=== PATIENT | female | born 1940 | race Caucasian/White ===

== ENCOUNTER 2024-11-24 10:20 | Outpatient (CLI) | payer MEDICARE ==
[~2024-11-24 10:20] MED LIST: IODIXANOL 320 MG/ML INFUS..BTL 100ML IV ONE
[2024-11-24 11:03] LABS: MEAN PLATELET VOLUME 7.0 FL (7.4-10.4); RED CELL DISTRIBUTION WIDTH 19.6 % (11.5-14.5)
[2024-11-24 11:14] LABS: INR 1.0 INR
[2024-11-24 11:23] LABS: PLATELET ESTIMATE NORMAL
[2024-11-24 11:24] LABS: ELLIPTOCYTES 1+; LARGE PLATELETS FEW
[2024-11-24 11:26] LABS: CREATININE 1.48 MG/DL (0.40-0.90); PRO BRAIN NATRIURETIC PEPTIDE 3297 PG/ML (0-450); TOTAL CARBON DIOXIDE 23.3 MMOL/L (24-32); eGFR 34 ML/MIN
[2024-11-24 11:34] LABS: APTT 24 SECONDS (22-32)
--- NOTE | 2024-11-24 11:38 | RADIOLOGY REPORT ---
DI CHEST,TWO VIEWS, HISTORY: SOB TAVR COMPARISON: None None TECHNICAL DATA: 2 view of the chest was obtained. FINDINGS: Lines and tubes: None Cardiomediastinal silhouette: normal Pulmonary vasculature: normal Lung expansion: normal Lung airspace: normal Lung interstitium: normal Pleura: normal Pneumothorax: no Bones: Unremarkable Other: no IMPRESSION: No acute intrathoracic abnormality.
--- NOTE | 2024-11-24 12:37 | VASCULAR REPORT ---
CLINICAL HISTORY: Preoperative examination. TECHNIQUE: Duplex carotid Doppler ultrasound was performed. Grayscale, color-flow, and spectral wavef orm analysis was performed. COMPARISON: None FINDINGS: There is moderate calcified plaque in the right carotid bifurcation moderate to marked calcified plaq ue in the left carotid bifurcation. There is elevated peak systolic velocity in the proximal left int ernal carotid artery up to 307 cm/sec with ICA/CCA ratio of 3.8. No significant elevation of peak sys tolic velocity in the right internal carotid artery. There is elevated peak systolic velocities in wero th external carotid arteries. Subclavian arteries are patent bilaterally, with peak systolic velocity in the right subclavian artery measuring up to 119 cm/sec peak systolic velocity in the left subclav estella artery measuring up to 115 cm/sec. EXAMINATION DATA: RIGHT PSV (cm/s) EDV (cm/s) ICA 121 29 CCA 76 ECA 213 ICA/CCA Ratio: 1.6 Vertebral Flow: antegrade LEFT PSV (cm/s) EDV (cm/s) ICA 307 195 CCA 123 ECA 276 ICA/CCA Ratio: 3.8 Vertebral Flow: antegrade IMPRESSION: 1. Calcified atherosclerotic plaque of the carotid bifurcations bilaterally. The left proximal international relations professor al carotid artery peak systolic velocity is consistent with greater than 70% stenosis, although the I CA/CCA ratio is less than 4. 2. Findings in the right internal carotid artery correspond to the less than 50% stenosis category. 3. Elevated peak systolic velocities in both external carotid arteries, consistent with the less than 50% stenosis category, although the proximal right external carotid artery visually approaches 50% s tenosis. 4. Antegrade flow in the vertebral arteries bilaterally.
--- NOTE | 2024-11-25 11:26 | RADIOLOGY REPORT ---
Procedure: CT CTA TAVR Reason for study/Clinical History: Chest pain, evaluate for dissection. Comparison Study: None Exam Date: 11/24/2024 12:27 PM TECHNIQUE: Multiplanar reformatted images were generated from volumetric data acquired on a multidetector CT [facility]. Cardiac gating was utilized. Arterial phase images were obtained through the chest, abdomen and pelvis following intravenous administration of contrast material. 100 mL visipaque [address] dose reduction techniques were utilized. 3-D reconstructions were performed on an independent work station. Radiation Dose Information: CT Dose: CTDI volume is 65 mGy. Dose-length product is 1928 mGy*cm FINDINGS: Vascular: Aortic measurements: Aortic annulus: 25.6 x 23 mm Sinus of valsalva: right cusp 31.7 mm, left cusp 32.5 mm, non-coronary cusp 32.3 mm Right coronary distance: 27.2 Left coronary distance: 19.2 ST junction 25.5 mm Ascending aorta 32.5 mm Aortic arch 27.3 mm Descending aorta 27.5 mm Aortic hiatus 25 mm Upper abdominal aorta 23.4 mm Minimal abdominal aorta 6.73 mm Right common iliac 3.77 mm, tortuosity index 1.08 Left common iliac 3.33 mm, tortuosity index 1.18 There is normal caliber of aorta. No aortic dissection. Penetrating atherosclerotic ulcer projecting off the distal descending thoracic aorta at the level of the hiatus measuring up to 26 mm with mild m ural thrombus. Bovine aortic arch. There is conventional coronary artery anatomy. Diffuse calcified atherosclerotic plaque. No central pulmonary embolism. There is normal dimension of the main pulmonary artery. Heart is normal. There are no intracardiac filling defects. No pericardial effusion. Mediastinum: There is no significant intrathoracic or axillary lymphadenopathy by CT size criteria. Lungs: Atelectasis and scarring in the lung bases. Pleura: No effusion or pneumothorax. Chest wall: No acute abnormality. Abdomen and Pelvis: Liver: Left hepatic cysts. Gallbladder: Cholelithiasis. Spleen: Normal in appearance. Pancreas: Normal in appearance. Adrenals: Normal in appearance. Kidneys: Bilateral renal cysts including parapelvic renal cysts. No hydronephrosis. Bowel: Normal in appearance. Peritoneum: No free air or free fluid. Lymph nodes: Subcentimeter retroperitoneal and iliac chain lymph nodes noted. Pelvic structures: No pelvic mass. Bones: Chronic appearing compression deformity of L1. Multilevel degenerative disease. Grade 1 anter olisthesis of L4 on L5. Osteopenia. IMPRESSION: 1. TAVR planning with vascular measurements as described above. 2. Penetrating atherosclerotic ulcer projecting off the distal descending thoracic aorta measuring up to 25 mm with mild mural thrombus. Vascular surgery and/or interventional radiology evaluation is re commended. 3. Left hepatic cysts. Cholelithiasis. Bilateral renal cysts including parapelvic renal cysts. Subc entimeter retroperitoneal and iliac chain lymph nodes are nonspecific. Chronic appearing compression deformity of L1. Osteopenia. HS:Y
== END 2024-11-24 23:59 | disposition home or self-care (01) ==
LOC: RAD 10:20
PROVIDERS: ATTEND Internal Medicine Cardiovascular Disease
DX: N28.1 Cyst of kidney, acquired (principal); K80.20 Calculus of gallbladder without cholecystitis without obstruction; K76.89 Other specified diseases of liver; I65.23 Occlusion and stenosis of bilateral carotid arteries; I21.9 Acute myocardial infarction, unspecified; I70.0 Atherosclerosis of aorta; I35.0 Nonrheumatic aortic (valve) stenosis; R06.02 Shortness of breath; M43.8X6 Other specified deforming dorsopathies, lumbar region; M25.78 Osteophyte, vertebrae
CPT/HCPCS: 36415; 71046; 71275; 74174; 75572; 80053; 83880; 85008; 85025; 85610; 85730; 93880; Q9967

== ENCOUNTER 2024-12-23 07:16 | Inpatient (IN) | payer MEDICARE ==
--- NOTE | 2024-12-16 13:51 | ELECTROCARDIOGRAPH REPORT ---
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 ALBA Polanco Measurements Intervals [place] Rate: 69 P: 76 [place]: 154 QRS: 72 QRSD: 94 T: 80 QT: 396 QTc: 425 Interpretive Statements Sinus rhythm Consider left atrial enlargement Electronically Signed On 12-17-2024 15:36:[address] ALBA Polanco Please click the below link to view image of tracing.
[2024-12-16 14:08] LABS: LEUKOCYTE ESTERASE ,URINE NEGATIVE (Neg); NITRITES, URINE NEGATIVE (Neg); OCCULT BLOOD,URINE NEGATIVE (Neg)
[2024-12-16 14:16] LABS: UA COLLECTION TYPE NON-SPECIFIED
[2024-12-16 14:17] LABS: MEAN PLATELET VOLUME 7.1 FL (7.4-10.4); PRE OP HEMATOCRIT 29.3 % (35.0-45.0); PRE OP PLATELET COUNT 170 X10'3 (140-440); PRE OP WHITE BLOOD COUNT 4.1 10'3 (4.8-10.8); RED CELL DISTRIBUTION WIDTH 19.8 % (11.5-14.5)
[2024-12-16 14:19] LABS: FINE GRANULAR CAST 0-3 /LPF (NEGATIVE); MUCUS STRANDS FEW /LPF (Neg); SQUAMOUS EPITHELIAL CELL,UR FEW /LPF (FEW)
[2024-12-16 14:23] LABS: COARSE GRANULAR CAST 0-3 /LPF (NEGATIVE); PRE OP INR 1.1 INR; PRE OP PARTIAL THROMB. TIME 25.0 SECONDS (22-32); PRE OP PROTIME 10.8 SECONDS (9.0-12.0)
[2024-12-16 14:27] LABS: PRE OP HEMOGLOBIN 9.5 g/dL (12.0-16.0)
[2024-12-16 14:31] LABS: CAL OXALATE CRYSTALS 3+ /HPF (NEGATIVE); CREATININE 1.26 MG/DL (0.40-0.90); PRE OP ALT 12 U/L (30-65); PRE OP ANION GAP 7 (8-16); PRE OP AST 15 U/L (10-37); PRE OP BILIRUB, TOTAL 0.5 MG/DL (0.0-1.0); PRE OP GLUCOSE 92 MG/DL (70-104); PRE OP POTASSIUM 3.8 MMOL/L (3.4-5.1); PRE OP SODIUM 138 MMOL/L (135-145); PRO BRAIN NATRIURETIC PEPTIDE 944 PG/ML (0-450); TOTAL CARBON DIOXIDE 25.2 MMOL/L (24-32); eGFR 41 ML/MIN
[2024-12-16 15:03] LABS: PLATELET ESTIMATE NORMAL
[2024-12-16 15:04] LABS: ELLIPTOCYTES 1+
[2024-12-23] VITALS (23 sets, daily range): BP systolic 112–161; BP diastolic 39–89; PULSE 57–88; RESP 11–20; TEMP 97.6–98.4; O2SAT 96–99
[~2024-12-23] VITALS: Ht 160 cm; Wt 57.8 kg
[2024-12-23] MEDS: ceFAZolin 2gm/dext,iso 50mL 50 ML IV ONE (05:30)
[2024-12-23] MEDS: phenylephrine inj 50 MG in normal saline 250ml IV solN IV SCH (06:35)
[2024-12-23] MEDS: nitroPRUSSIDE (NIPRIDE) (200MCG/ML) 100ML Drip IV SCH (06:35)
[~2024-12-23 07:16] MED LIST changes: +ASCO-482 PO; +ASPI81TA52 PO; +ATOR-2 PO; +CARV-50 PO; +CHOL100046 PO; +DOCUMENT DATE & TIME OF BETA-BLOCKER PO ONE; +ESOM20CA PO; +FOLI0.4T6 PO; +HYDR200T73 PO; -IODIXANOL 320 MG/ML INFUS..BTL 100ML IV ONE; +METH2.5T PO; +PRED5TAB PO; +ondansetron/PF 4mg/2ml inj IV PRN; +protamine sulfate 10mg/ml inj. ONE
[2024-12-23] MEDS: hydrocortisone sod succ/PF 100mg/2ml inj. IV ONE (07:49)
[2024-12-23] MEDS: ringers solution, lacted 1,000 ML IV SCH ×2 (07:50→12:05)
[2024-12-23] MEDS: VANCOMYCIN 1GM 200ML H20 (PEG) 200 ML IV ONE (07:50)
[2024-12-23] MEDS ORDERED: heparin 1,000 UNITS/NS 500ml 1,500 ML ONE (10:11)
[2024-12-23] MEDS ORDERED: LIDOcaine 1% 30ml preserv. free vial ONE (10:11)
[2024-12-23] MEDS ORDERED: ondansetron/PF 4mg/2ml inj IV PRN ×2 (10:25→11:50)
[2024-12-23] MEDS ORDERED: acetaminophen 1,000mg/100ml IV 100 ML IV PRN (10:25)
[2024-12-23] MEDS ORDERED: HYDROmorphone/PF 0.2 MG/ML SYRINGE IV PRN (10:25)
[2024-12-23] MEDS ORDERED: labetalol 20mg/4ml (5mg/ml) syringe IV PRN ×2 (10:25→11:50)
[2024-12-23] MEDS ORDERED: midazolam 1 mg/ML 2ml injection ONE (10:29)
[2024-12-23] MEDS ORDERED: fentaNYL/PF 50MCG/1 ML 2ML syringe ONE (10:29)
[2024-12-23] MEDS ORDERED: propofol inj 20 ML IV ONE ×2 (10:35)
[2024-12-23] MEDS ORDERED: potassium CL 10mEq/100ml bag 100 ML IV PRN (11:50)
[2024-12-23] MEDS ORDERED: potassium Cl 20mEq/100mL bag 100 ML IV PRN (11:50)
[2024-12-23] MEDS ORDERED: hydrALAZINE 20mg/ml inj. IV PRN (11:50)
[2024-12-23] MEDS ORDERED: HYDROcodone/acetaminophen 5mg/325mg tablet PO PRN (11:50)
[2024-12-23] MEDS ORDERED: magnesium sulf-water 2g/50mL 50 ML IV PRN (11:50)
[2024-12-23] MEDS ORDERED: magnesium sulf-water 4G/100mL 100 ML IV PRN (11:50)
[2024-12-23] MEDS ORDERED: ALPRAZolam 0.25mg tablet PO PRN (11:50)
[2024-12-23] MEDS ORDERED: potassium Cl 40MEQ/270ML bag 250 ML IV PRN (11:50)
[2024-12-23] MEDS ORDERED: docusate sod 100mg capsule PO PRN (11:50)
[2024-12-23] MEDS ORDERED: pantoprazole 40mg Tablet.DR PO PRN (11:50)
[2024-12-23] MEDS ORDERED: heparin 1,000unit/ml 10ml vial 10 ML ONE (11:55)
--- NOTE | 2024-12-23 11:56 | OPERATIVE REPORT ---
Operative Report Providers to CC: Beulah Brown DO ~ Date of Procedure: Dec 23, 2024 Pre-Operative Diagnosis: Severe Aortic Stenosis Post-Operative Diagnosis SAME as PRE-Op Procedure Performed 1. Ultrasound-guided access, bilateral femoral vessels. 2. Right femoral angiography. 3. Ascending aortography 4. Temporary transvenous pacer to the RV apex. 5. Peripheral Angioplasty of the right common iliac artery 6. Placement of a 23 +1 mm Ortiz S3 Resilia valve. Surgeon: Stephanie Beltran MD Line Producer MD Dr. 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 They underwent MAC associated anesthesia. Ultrasound was used to guide access to the bilateral femoral vessels, 7-Welsh sheath, right femoral artery, 6-Welsh sheath, right radial artery and left femoral vein. Right femoral angiogram was obtained. Heparin was given to maintain an ACT over 250 seconds. A single Perclose was placed on the right. We upsized to an 8-Welsh sheath. Two pigtail catheters placed in the ascending aorta. Ascending aortography done to determine the angle of deployment. Temporary transvenous pacer to the RV apex and confirmed capture. The pigtail was used and an Amplatz J-wire placed into the Aorta. Over this, a 7.0x60mm Welton balloon was used to pre-dilate the right common iliac artery. We then upsized an 8-Welsh sheath to a 14-Welsh Ortiz eSheath on the right. We crossed the aortic valve using a straight stiff exchange length Terumo wire supported by a 6-Welsh AL1 catheter. LV AO pressures were recorded. A Celsense extra support wire was placed in the left ventricle. A 23+1mm Ortiz S3 Resilia valve was brought to position and under rapid right ventricular pacing was deployed. Post-procedure, there was no AI and no residual . Guidewires and balloons were removed at this time. The temporary pacer was removed. The 14-Welsh Ortiz eSheath was removed and the Perclose tied with adequate hemostasis. The arterial sheath in the right wrist was removed and hemostasis obtained with a VascBand. The venous sheath on the left was removed and a single Angioseal used for hemostasis. Protamine was given to reverse the effects of heparin. The patient was stable post-procedure. Good pulses in the legs and no evidence of bleeding, transferred to the PACU in stable condition. HEMODYNAMICS: Pre: LV: 160/10 mmHg LVEDP: 27mmHg Ao: 123/45, MAP 77mmHg Post: LV: 168/16 mmHg LVEDP: 31 mmHg Ao: 168/56, MAP 93mmHg RESULTS: 1. Balloon Angioplasty of the right common iliac artery with 7.0x60mm Welton balloon. 2. Successful placement of a 23(+1) mm Ortiz S3 Resilia valve, right transfemoral approach, single perclose device. ASA 81mg QD 3. PAD: cont GDMT 4. Hypertension: Resume if blood pressure remains stable 5. Carotid stenosis: s/p CEA 6. Acute on chronic diastolic heart failure, LVEDP 27mmHg. Patient will be watched in the recovery area until stable, then transferred to telemetry at that time. STEPHANIE BELTRAN MD Dec 23, 2024 11:56
--- NOTE | 2024-12-23 12:11 | ELECTROCARDIOGRAPH REPORT ---
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 ALBA Polanco Measurements Intervals [place] Rate: 78 P: 63 [place]: 157 QRS: -21 QRSD: 95 T: 93 QT: 410 QTc: 468 Interpretive Statements Sinus rhythm Borderline left axis deviation Low voltage, extremity leads Nonspecific T abnormalities, lateral leads Electronically Signed On 12-23-2024 17:26:[address] ALBA Polanco Please click the below link to view image of tracing.
[2024-12-23] MEDS: normal saline 1000ml 1,000 ML IV SCH (12:44)
[2024-12-23] MEDS: hydrALAZINE 20mg/ml inj. IV PRN (13:01)
--- NOTE | 2024-12-23 14:18 | CARDIOLOGY REPORT ---
APPROVED REPORT EXAM: Focused, limited intraprocedural transthoracic 2D, spectral and color flow Doppler echocardiogr am during TAVR deployment. Patient Location: [facility] Blood Pressure: 186/78 mmHg Heart Rate: 74 bpm Rhythm: SINUS Indications SEVERE AORTIC STENOSIS HYPERTENSION HYPERLIPIDEMIA ND, STENT X1 01/10/20 23 mm Ortiz Heath 3 Ultra RESILIA Bioprosthetic TAVR Veterinary Epidemiologist: Livia Brown DO / Interventionalist: Kuldeep Beltran MD and Nik No MD. / Surgeon: Nik Mcgee ams, MD / Device rep: Angie Baird ELS Previous echo: 11/10/24 UNK TT (EF 58%, ANTOINE 0.8 cmsq, PkV 3.73 m/s, grad 60 / 39 mmHg, m-mod AI, mMR, mTR, mod LAE) LEFT VENTRICLE Normal LV size and function. Mild concentric hypertrophy. LVEF is 60-65%. RIGHT VENTRICLE RV is normal size and function. ATRIA LA appears moderately dilated. AORTIC VALVE Trileaflet AV appears heavily calcified with significant stenosis demonstrated by reduced excursion a nd increased transvalvular and ascending aorta turbulance. ANTOINE: 0.7 cmsq; Pkv: 4.27 m/sec; Gradients: 73 / 47 mmHG. Trace insufficiency. POST DEPLOYMENT (LOOP: 50 ): 23 mm Ortiz Heath 3 Ultra Resili a bioprosthetic TAVR appears well seated with normal function. Trace paravalvular leak present at 2 a nd 8 o'clock in TTE SAX BASE. ANTOINE is measured at 2.70 cmsq. Peak / mean gradients of 8 / 4 mmHG. Peak velocity is measured at 1.45 m/sec. MITRAL VALVE Mild MV annular calcification without stenosis. Trace regurgitation. TRICUSPID VALVE TV appears structurally normal with trace regurgitation. PULMONIC VALVE Normal PV without stenosis, physiologic insufficiency. GREAT VESSELS Aortic root is normal in size. The proximal ascending aorta is normal in size. PERICARDIUM Normal pericardium. No effusion. Small anterior fat pad is present. Other Information Study Quality: Adequate
[2024-12-23] MEDS: sod chloride 0.9% 10ml flush syringe IV SCH (16:14)
[2024-12-23] MEDS: ceFAZolin 1GM/D5W- ADD-VANTAGE 50 ML IV SCH (16:14)
[2024-12-23] MEDS ORDERED: VANCOMYCIN 1GM 200ML H20 (PEG) 200 ML IV SCH (20:00)
[2024-12-23] MEDS ORDERED: vancomycin/NS 1 GM ADD-VANTAGE 250 ML IV SCH (21:17)
[2024-12-23] MEDS: vancomycin/NS 1 GM ADD-VANTAGE 250 ML IV SCH (21:55)
[2024-12-24 02:00] VITALS: BP 100/32; PULSE 57; RESP 20; TEMP 97.4; O2SAT 97
[2024-12-24 03:50] VITALS: BP 123/49
[2024-12-24 06:00] VITALS: BP 121/83; PULSE 51; RESP 18; TEMP 97.8; O2SAT 96
[2024-12-24 06:23] LABS: MEAN PLATELET VOLUME 7.1 FL (7.4-10.4); RED CELL DISTRIBUTION WIDTH 20.5 % (11.5-14.5)
--- NOTE | 2024-12-24 06:39 | RADIOLOGY REPORT ---
CHEST RADIOGRAPH Indication: s/p TAVR Technique: Single frontal view of the chest was obtained Comparison: DI CHEST,TWO VIEWS on DOS: 11/24/24 FINDINGS: Lines and Tubes: None Lungs: No focal consolidation. Pleura: No effusion. No pneumothorax. Cardiomediastinal contours: The heart is normal in size. Coronary artery stent. Calcifications in th e aortic arch. Aortic valve prosthesis noted. Bones: No acute osseous abnormality. IMPRESSION: 1. No acute cardiopulmonary disease.
[2024-12-24 06:53] LABS: CREATININE 1.42 MG/DL (0.40-0.90); PRO BRAIN NATRIURETIC PEPTIDE 4679 PG/ML (0-450); TOTAL CARBON DIOXIDE 20.7 MMOL/L (24-32); eCRCL 25 ML/MIN; eGFR 35 ML/MIN
[2024-12-24 07:00] VITALS: RESP 18; O2SAT 96
[2024-12-24] MEDS: cholecalciferol (vitamin D3) 1,000 unit (25mcg) tablet PO SCH (07:46)
[2024-12-24] MEDS: aspirin 81mg, enteric-coated 1 TAB TABLET.DR PO SCH (07:48)
[2024-12-24] MEDS: pantoprazole 40mg Tablet.DR PO SCH (07:48)
--- NOTE | 2024-12-24 08:22 | ELECTROCARDIOGRAPH REPORT ---
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 ALBA Polanco Measurements Intervals [place] Rate: 54 P: 71 SD: 160 QRS: 39 QRSD: 97 T: 73 QT: 448 QTc: 425 Interpretive Statements Sinus rhythm Electronically Signed On 12-25-2024 15:38:[address] ALBA Polanco Please click the below link to view image of tracing.
[2024-12-24 08:48] LABS: EOSINOPHILS % (MANUAL) 5.0 % (0-6); LYMPHOCYTES % (MANUAL) 15.0 % (21-51); MONOCYTES % (MANUAL) 12.0 % (2-12); NEUTROPHILS % (MANUAL) 68.0 % (42-75)
[2024-12-24 08:49] LABS: PLATELET ESTIMATE NORMAL
[2024-12-24 08:50] LABS: ELLIPTOCYTES FEW
[2024-12-24] MEDS: potassium Cl 40MEQ/1/2NS 520ml 520 ML IV PRN (10:03)
[2024-12-24] MEDS ORDERED: potassium Cl 20 mEq SR tablet PO PRN (12:10)
[2024-12-24] MEDS: potassium Cl 20 mEq SR tablet PO PRN (12:21)
--- NOTE | 2024-12-24 15:00 | DISCHARGE SUMMARY ---
Discharge Summary Providers to CC ~ Discharge Summary Admission Diagnosis: Severe Aortic Stenosis Hospital Course DATE OF ADMISSION: 12/23/24 DATE OF DISCHARGE: 12/24/24 Discharge Diagnosis\Comment: Aortic stenosis status post TAVR Peripheral arterial disease Anemia, chronic on iron supplementation Carotid artery stenosis status post prior carotid endarterectomy Hypertension Acute on chronic diastolic heart failure Operations\Procedures: 1. Ultrasound-guided access, bilateral femoral vessels. 2. Right femoral angiography. 3. Ascending aortography 4. Temporary transvenous pacer to the RV apex. 5. Peripheral Angioplasty of the right common iliac artery 6. Placement of a 23 +1 mm Ortiz S3 Resilia valve. Consultants: No consultants Complications: No complications Condition on DC: Stable Continued Medications: Ascorbic Acid (Vitamin C) 250 Mg Tablet 1 TAB PO DAILY for 30 Days, #30 TAB 0 Refills Aspirin (Aspirin EC) 81 Mg Tablet.dr 1 TAB PO DAILY for 30 Days, #30 TAB Atorvastatin Calcium (Atorvastatin Calcium) 80 Mg Tablet 1 TAB PO DAILY for 30 Days, #30 TAB 0 Refills Carvedilol* (Coreg*) 12.5 Mg Tablet 1 TABLET PO DAILY, TABLET Cholecalciferol (Vitamin D3) (Vitamin D3) 25 Mcg (1000 Unit) Capsule 1 CAP PO DAILY for 30 Days, #30 CAP 0 Refills Esomeprazole Magnesium (Nexium) 20 Mg Capsule.dr 1 CAP PO DAILY Folic Acid* (Folic Acid*) 0.4 Mg Tablet 1 TAB PO DAILY for 30 Days, #30 TAB Hydroxychloroquine Sulfate* (Plaquenil*) 200 Mg Tablet 200 MG PO BID, TAB Methotrexate Sodium (Methotrexate) 2.5 Mg Tablet 1 TAB PO Q7D for EVERY FRIDAY EVERY FRIDAY Prednisone* (Prednisone*) 5 Mg Tablet 1 TAB PO DAILY for 30 Days, #30 TAB 0 Refills Discharge Summary: This is a 84-year-old female who had known severe aortic stenosis who presented for planned TAVR. She underwent placement of a 23+ 1 mm Ortiz S3 resilient valve with Dr. Graciela Beltran and Dr. Boubacar No. Please see Dr. Alanna Beltran's dictation for further details on the procedure. She tolerated well. Monitored overnight in the telemetry unit. Remained hemodynamically stable. Has been up and ambulatory. Reports improvement in shortness for breath. No chest pain or pressure. No dizziness, lightheadedness or syncope. She was noted to be anemic this morning with hemoglobin of 7.8 and hematocrit 24.2. She reports history of chronic, iron-deficiency anemia. She was previously on iron supplementation. Postoperative testing included an EKG that demonstrates sinus rhythm. No heart block. Echocardiogram reviewed by Dr. Alanna No and she was deemed stable for discharge. Physical exam prior to discharge: General: Awake, alert, oriented. No apparent distress Neck: Supple. Normal range of motion. No JVD Respiratory: Lungs are clear to auscultation bilaterally. No respiratory distress. Chest: Normal shape and size. No accessory muscle use. Cardiovascular: Regular rate and rhythm. S1-S2. No murmur, gallop, rub. Gastrointestinal: Abdomen is soft. Nontender to palpation. Bowel sounds present. Extremities: No lower extremity edema, cyanosis or clubbing. Lateral deviation of the fingers. Femoral cath sites with dressings clean dry and intact. No ecchymosis or swelling. No hematoma. Neurologic: Alert and oriented x4. Nonfocal Psychiatric: Normal mood and affect. Skin: Normal color. Warm and dry. Plan: Patient will be discharged home in stable condition. She will follow up as scheduled. Activity restrictions reviewed. She will resume her iron and follow up with primary care provider with regards to iron-deficiency anemia. *Problems/Diagnosis: (1) Aortic stenosis (2) Anemia (3) Acute on chronic diastolic heart failure (4) Peripheral arterial disease (5) Hypertension (6) History of carotid artery stenosis Total Time Spent on D/C: > 30 Minutes Counseling Services Smoking & Tobacco Cessation: N/A Supervising MD Co-signing Provider: MILLIE Jones NP Dec 24, 2024 15:00
--- NOTE | 2024-12-25 09:44 | CARDIOLOGY REPORT ---
APPROVED REPORT EXAM: Limited 2D, Doppler, and color-flow Echocardiogram. Patient Location: [facility] Blood Pressure: 121/83 mmHg Heart Rate: 65 bpm Indications ONE DAY FOLLOW-UP TAVR 23 mm Ortiz Heath 3 Ultra RESILIA Bioprosthetic TAVR PROPOSAL EDITOR: Livia Brown MD Previous ECHO: 12/23/24, [facility], EF: 60-65; ANTOINE: 2.70; GRAD: 8 / ; PKV: 1.45 2D Dimensions IVSd 1.0 (0.7-1.1cm) LVDd 4.1 cm PWd 0.9 (0.7-1.1cm) IVSs 1.5 (0.8-1.2cm) LVDs 2.7 (2.5-4.0cm) PWs 1.3 (0.8-1.2cm) LVOT Diameter 2.30 (1.8-2.4cm) LVEF(%) 65.1 (>50%) IVC 19.68 mmFS (%) 35.3 % SV 49.2 ml CO 3.1 L/min M-Mode Dimensions Left Atrium(MM) 3.91 (2.5-4.0cm) Aortic Root 2.92 (2.2-3.7cm) Aortic Valve AoV Peak Chandu. 245.7 cm/s AoV VTI 55.9 cm AO Peak GR. 24.1 mmHg AO Mean GR. 13 mmHg LVOT VTI 33.66 cm LVOT Peak Chandu. 127.9 cm/s ANTOINE(VTI)/BSA 2.71 cm2/m2 ANTOINE (VTI) 2.71 cm2 Tricuspid Valve TR P. Velocity 286 cm/s RAP ESTIMATE 10 mmHg TR Peak Gr. 33 mmHg RVSP 43 mmHg LEFT VENTRICLE Normal LV size and wall thickness. Overall systolic function is normal. LVEF is 65%. RIGHT VENTRICLE Right ventricle is mild to moderately dilated with adequate function. Elevated right heart pressures with an RVSP of 43 mmHg. ATRIA The left atrium size is normal. AORTIC VALVE 23 mm Ortiz Heath 3 Ultra Resilia bioprosthetic TAVR appears well seated with normal function. Tra ce paravalvular leak present at 8 o'clock in TTE SAX BASE. ANTOINE is measured at 2.71 cmsq. Peak / mean gradients of 24 / 13 mmHG. Peak velocity is measured at 2.46 m/sec. MITRAL VALVE Mild mitral annular calcification without stenosis. Trace regurgitation. TRICUSPID VALVE The tricuspid valve is normal in structure with mild regurgitation. PULMONIC VALVE Pulmonic valve is grossly normal in structure. GREAT VESSELS The aortic root is normal in size. The IVC is normal in size and collapses >50% with inspiration. PERICARDIUM Normal pericardium. No effusion. Other Information Study Quality: Adequate Conclusion Normal LV size and wall thickness. Overall systolic function is normal. LVEF is 65%. Right ventricle is mild to moderately dilated with adequate function. Elevated right heart pressures with an RVSP of 43 mmHg. The left atrium size is normal. 23 mm Ortiz Heath 3 Ultra Resilia bioprosthetic TAVR appears well seated with normal function. Tr mendy paravalvular leak present at 8 o'clock in TTE SAX BASE. ANTOINE is measured at 2.71 cmsq. Peak / me an gradients of 24 / 13 mmHG. Peak velocity is measured at 2.46 m/sec. Mild mitral annular calcification without stenosis. Trace regurgitation. The tricuspid valve is normal in structure with mild regurgitation. Normal pericardium. No effusion.
== END 2024-12-24 16:03 | disposition home or self-care (01) | DRG 266 ==
LOC: PAS IN 07:16 → PCU 3S 13:37
PROVIDERS: ADMIT Internal Medicine Cardiovascular Disease; ATTEND Internal Medicine Cardiovascular Disease
PROC: 047C3ZZ Dilation of Right Common Iliac Artery, Percutaneous Approach (ICD-10-PCS; 2024-12-23)
PROC: B4101ZZ Fluoroscopy of Abdominal Aorta using Low Osmolar Contrast (ICD-10-PCS; 2024-12-23)
PROC: B41F1ZZ Fluoroscopy of Right Lower Extremity Arteries using Low Osmolar Contrast (ICD-10-PCS; 2024-12-23)
PROC: 02RF38Z Replacement of Aortic Valve with Zooplastic Tissue, Percutaneous Approach (ICD-10-PCS; principal; 2024-12-23 10:24)
DX: I35.0 Nonrheumatic aortic (valve) stenosis (principal); Z00.6 Encounter for examination for normal comparison and control in clinical research program; I50.33 Acute on chronic diastolic (congestive) heart failure; I73.9 Peripheral vascular disease, unspecified; D64.9 Anemia, unspecified; I11.0 Hypertensive heart disease with heart failure
CPT/HCPCS: 33361; 36415; 37220; 71045; 76937; 80053; 81001; 82948; 83735; 83880; 85007; 85008; 85025; 85347; 85610; 85730; 86885; 86900; 86901; 86920; 87081; 93005; 93308; A6258; A6449; C1725; C1756; C1760; C1769; C1894; G0378; J0360; J0690; J1644; J1720; J2003; J2250; J2704; J2720; J3010; J3373; J3375; J3480; J3490; J7030; J7040; J7120; J7512; Q9967